=== PATIENT | male | born 1930 | race Caucasian/White ===

== ENCOUNTER 2019-02-08 13:39 | Outpatient (CLI) | payer MEDICARE, BC | END 2019-02-08 23:59 | disposition home or self-care (01) | LOC: WOUND 13:39 | PROVIDERS: ATTEND Family Medicine | DX: T23.221A Burn of second degree of single right finger (nail) except thumb, initial encounter (principal); T31.0 Burns involving less than 10% of body surface; I10 Essential (primary) hypertension; I48.20 Chronic atrial fibrillation, unspecified; G47.30 Sleep apnea, unspecified; E10.9 Type 1 diabetes mellitus without complications; Z85.6 Personal history of leukemia; X08.8XXA Exposure to other specified smoke, fire and flames, initial encounter; Y93.89 Activity, other specified; Y92.89 Other specified places as the place of occurrence of the external cause; Y99.8 Other external cause status | CPT/HCPCS: 16020; G0463 ==